=== PATIENT | female | born 1940 | race Caucasian/White ===

== ENCOUNTER 2016-03-19 09:17 | Day surgery (SDC) | payer OTHER ==
[~2016-03-19 09:17] MED LIST: AMIODARONE HCL200 MG PO; CALCIUM+D PO; DESONIDE0.051 TOP; DOCUSATE PO; ELIQUIS5 MG PO; FOLIC ACID1 MG PO; FUROSEMIDE40 MG PO; KLOR-CON 1010 MEQ PO; LEVO-T125 MCG PO; METHOTREXATE PO; METOPROLOL SUC100 MG PO; MEXILETINE HCL150 MG PO; OMEPRAZOLE20 M1 PO; POTASSIUM CHLO10 ME2 PO; PREDNISONE5 MG PO; SIMVASTATIN20 MG PO; URSODIOL500 MG PO; ZOLOFT50 MG PO; [UNRECOGNIZED DRUG - OTHER] PO
--- NOTE | 2016-03-19 12:31 | Provider's Discharge Care Plan ---
Problem, Goal, Plan Problem List 1. GAVE (gastric antral vascular ectasia) 2. Hiatal hernia 3. Diverticulosis
--- NOTE | 2016-03-19 12:31 | Provider's Discharge Care Plan ---
Problem, Goal, Plan Problem List 1. GAVE (gastric antral vascular ectasia) 2. Hiatal hernia 3. Diverticulosis
--- NOTE | 2016-03-19 13:10 | OPERATIVE REPORT ---
DATE OF SURGERY: 03/19/2016 SURGEON: Kaushal Lynch MD PREOPERATIVE DIAGNOSIS: 1. Heme-positive stools/gastrointestinal hemorrhage POSTOPERATIVE DIAGNOSES: 1. Gastric antral vascular ectasia (GAVE) 2. Diverticulosis coli 3. Hiatal hernia PROCEDURE PERFORMED: 1. Colonoscopy 2. Esophagogastroduodenoscopy with biopsies ANESTHESIA: Total IV general. INDICATIONS: The patient is a 76-year-old woman presenting with persistent heme- positive stool. SURGICAL TECHNIQUE: The patient was taken to the endoscopy suite, where total IV general was administered and the patient was placed in the left lateral decubitus position. A well-lubricated colonoscope was advanced the length of the colon under direct vision. The patient had multiple diverticula in the sigmoid and sigmoid redundancy. The cecum and ileocecal valve were visualized. On withdrawal, the entire colon was inspected. There were no polyps or tumors seen. There were no bleeding sources seen and there was no active bleeding including a retroflexed view of the rectum. The upper GI endoscope was introduced into the stomach and duodenum. 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 None of this was actively bleeding. Retroflexed view demonstrated a small sliding hiatal hernia. A biopsy was taken from just above the ectatic area for Helicobacter testing. Further withdrawal showed mucosal creeping at the GE junction of about 2 cm. Multiple biopsies were taken from the squamocolumnar junction to rule out possible Barker's change. The rest of the esophagus was normal. In summary, the most likely source of this patient's heme-positive stool is vascular ectasia of the lower stomach. If this patient should loose sufficient blood to require transfusion or become symptomatic, then interventional endoscopy will be carried out to eradicate these areas, however, if this patient remains completely asymptomatic, direct treatment is more discretionary.
== END 2016-03-19 13:55 | disposition home or self-care (01) ==
LOC: OR SRH 09:17 → SCU SRH 09:24
PROVIDERS: Surgery
PROC: 0DJD8ZZ Inspection of Lower Intestinal Tract, Via Natural or Artificial Opening Endoscopic (ICD-10-PCS; principal; 2016-03-19 11:30)
PROC: 0DB68ZX Excision of Stomach, Via Natural or Artificial Opening Endoscopic, Diagnostic (ICD-10-PCS; principal; 2016-03-19 11:30)
PROC: 0DB38ZX Excision of Lower Esophagus, Via Natural or Artificial Opening Endoscopic, Diagnostic (ICD-10-PCS; principal; 2016-03-19 11:30)
DX: K31.819 Angiodysplasia of stomach and duodenum without bleeding (principal); K44.9 Diaphragmatic hernia without obstruction or gangrene; K57.30 Diverticulosis of large intestine without perforation or abscess without bleeding; Z79.02 Long term (current) use of antithrombotics/antiplatelets; Z95.0 Presence of cardiac pacemaker; D86.9 Sarcoidosis, unspecified; I10 Essential (primary) hypertension
CPT/HCPCS: 29229; 29240; 50004; 60001; 82943; 83526; 90705